=== PATIENT | female | born 1970 | race Caucasian/White ===

== ENCOUNTER 2021-12-06 09:30 | Emergency (ER) | payer SELFPAY ==
[2021-12-06 09:42] VITALS: BP 172/97; PULSE 100; RESP 16; TEMP 36.8; O2SAT 99; BMI 34.6
[2021-12-06 09:57] LABS: Glucose Point of Care 387 mg/dL (70-110)
--- NOTE | 2021-12-06 10:59 | W.ED.GENADLT ---
HPI - General Adult General: Chief complaint: General Medical Stated complaint: Sugar is really high Time Seen by Provider: 12/06/21 09:32 History of Present Illness: Patient is a 51-year-old female with history of obesity presenting to the emergency room for concerns of elevated glucose. Patient tells me that for the last few days she has had increased urination and increased thirst. Yesterday, patient was told by family member to check her glucose. Patient was noted her glucose to be 548. Patient reports that she was anxious and was in shock and had a little bit of chest pain at that time. Since then, patient repeat her glucose was noted that it was 390 yesterday night and continues to be persistently elevated today. Patient came to the emergency room for evaluation of elevated glucose. Denies nauesea/vomiting, fever/chill, chest pain, shortness of breath, abdominal pain, dysuria/hematuria/polyuria, diarrhea/melena/hematochezia. Shortly yesterday after she found out she had elevated glucose, patient had a little bit of chest pressure. Patient thinks that it may be related to her anxiety. Patient's chest the chest pressure only lasted for few minutes at a time. Denies any squeezing sensation, pleuritic chest pain or chest pain with radiation to the back. Onset: unknown Duration:ongoing Location:home Severity:moderate Associated symptoms: Reports chest pain; Deny dyspnea, nausea, rash, palpitations or vomiting Review of Systems Const: Denies: fever(s) or chills Eyes: Denies: change in vision ENMT: Denies: mouth pain Card: Reports: chest pain; Denies: palpitations Resp: Denies: dyspnea or non-productive cough GI: Denies: abdominal pain, nausea, vomiting or diarrhea : Reports: other (+polyuria); Denies: dysuria Musc: Denies: extremity pain Skin/Breast: Denies: rash or new lesions Neuro: Denies: weakness in extremities Psych: Reports: other (Normal mood) Stefan/Lymph: Denies: easy bruising PFSH ED PFSH: Medical History Obesity Social History Smoking and tobacco status: current every day smoker Alcohol intake: current Substance/Drug Use: never Physical Exam Const: COMMON NORMALS: alert HENMT: COMMON NORMALS: atraumatic HEAD & SCALP: atraumatic MOUTH: moist mucous membranes not abnormal Eye: COMMON NORMALS: EOMs intact bilaterally and conjunctivae normal CONJUNCTIVA: Yes conjunctivae normal Neck/C-Spine: COMMON NORMALS: full ROM and supple Resp: COMMON NORMALS: normal respiratory effort and clear to auscultation bilaterally AUSCULTATION: clear to auscultation bilaterally Cardio: COMMON NORMALS: regular rate RATE: regular rate GI: COMMON NORMALS: Soft to palpation and non-tender PALPATION: Yes Soft to palpation OTHER: No focal TTP. NO guarding rebound, guarding, rigidity. No CVA tenderness to percussion. Neg Montoya/Neg McBurney's point tenderness, no suprabupic tenderness to palpation. Extremity: COMMON NORMALS: full ROM Neuro: SENSORIUM/ORIENTATION: Yes alert MOTOR EXAM: No Abnormal motor strength present and Other motor observations present (no focal motor deficits) Psych: COMMON NORMALS: speech normal SPEECH: Yes normal speech MOOD & AFFECT: Yes euthymic mood Course Vital Signs: Vital signs: Vital Signs Temperature 98.2 F 12/06/21 09:42 Pulse Rate 80 12/06/21 13:35 Respiratory Rate 14 12/06/21 13:35 Blood Pressure 149/88 12/06/21 13:35 Pulse Oximetry 98 12/06/21 13:35 [facility] - General Adult Medical Decision Making 51-year-old female with history of bee sting presenting to the emergency room for concerns of elevated glucose. On physical exam, patient has no focal findings. Patient is glucose was 389. Lab did not show any signs of DKA. Patient received 2 L fluid with improvement glucose less than 300. After start patient on metformin. Patient tells me that she will follow-up with [facility] who is a nurse practitioner and will be started on insulin on Wednesday. Disposition: Discharge. Patient counseled regarding diagnostic impression, treatment plan. Patient given ED strict return precautions to return for continuation, worsening, or development of new symptoms. Instructed to f/u w/ PCP regarding symptoms today. Patient verbalized understanding. Lab Data : 12/06/21 11:20 12/06/21 11:20 Laboratory Results WBC 9.8 10^3/uL (4.0-10.0) 12/06/21 11:20 RBC 5.66 10^6/uL (4.1-5.3) H 12/06/21 11:20 Hgb 17.0 g/dL (11.5-15.3) H 12/06/21 11:20 Hct 49.1 % (37.0-47.0) H 12/06/21 11:20 MCV 86.7 fl (81-99) 12/06/21 11:20 MCH 30.0 pg (28.0-34.0) 12/06/21 11:20 MCHC 34.6 g/dL (30.0-36.0) 12/06/21 11:20 RDW 12.8 % (12.1-15.1) 12/06/21 11:20 Plt Count 247 10^3/cmm (130-400) 12/06/21 11:20 MPV 11.7 fL (7.4-10.4) H 12/06/21 11:20 Neut % (Auto) 67.2 % 12/06/21 11:20 Lymph % (Auto) 25.2 % 12/06/21 11:20 [place] % (Auto) 5.1 % 12/06/21 11:20 Eos % (Auto) 1.6 % 12/06/21 11:20 Baso % (Auto) 0.5 % 12/06/21 11:20 Neut # (Auto) 6.57 10^3/uL (1.8-7.7) 12/06/21 11:20 Lymph # (Auto) 2.5 10^3/uL (0.8-4.8) 12/06/21 11:20 [place] # (Auto) 0.5 10^3/uL (0.2-0.9) 12/06/21 11:20 Eos # (Auto) 0.2 10^3/uL (0.0-0.8) 12/06/21 11:20 Baso # (Auto) 0.1 10^3/uL (0.0-0.1) 12/06/21 11:20 Nucleated RBC % (auto) 0 % 12/06/21 11:20 Nucleated RBCs # 0.0 /100WBC 12/06/21 11:20 Sodium 135 mmol/L (136-145) L 12/06/21 11:20 Potassium 3.9 mmol/L (3.5-5.1) 12/06/21 11:20 Chloride 96 mmol/L (98-107) L 12/06/21 11:20 Carbon Dioxide 25 mmol/L (22-29) 12/06/21 11:20 Anion Gap 17.9 (5-19) 12/06/21 11:20 BUN 9 mg/dL (6-20) 12/06/21 11:20 Creatinine 0.8 mg/dL (0.5-0.9) 12/06/21 11:20 GFR Calculation 76.2 mL/min (90-130) L 12/06/21 11:20 Glucose 351 mg/dL (65-115) H 12/06/21 11:20 POC Glucose 272 mg/dL (70-110) H 12/06/21 13:18 Calculated Osmolality 293 mOsm/kg (285-295) 12/06/21 11:20 Calcium 9.5 mg/dL (8.5-10.5) 12/06/21 11:20 Troponin T Baseline 6 ng/L (0-10) 12/06/21 11:20 Serum Ketones Negative (Negative) 12/06/21 11:20 Discharge Plan Discharge Patient Disposition: Home Clinical Impression: Hyperglycemia Condition: Stable Prescriptions: New metformin 500 mg tablet 500 mg PO DAILY 30 Days Qty: 30 0RF Discharge Orders: Discharge ED (Routine); Ordered 12/06/21 Ordered By: Nasrin Lopez Discharge Diet: Advance as tolerated Discharge Activity: Increase activity as tolerated Patient Instructions: Diabetes and Diet, Diabetes and Exercise (ED) Activity Restrictions/Additional Instructions: Come back if you have any new or concerning issues. Please take your metformin daily. Please follow up with your primary care provider. Coding Level of Care Code ED Seamstress Fitter for Chg Fwd Exam Comprehensive
[2021-12-06] MEDS: sodium chloride 0.9% 1,000 ML 999 ML IV (11:21)
[2021-12-06 11:31] LABS: Basophils # 0.1 10^3/uL (0.0-0.1); Basophils % 0.5 %; Eosinophils # 0.2 10^3/uL (0.0-0.8); Eosinophils % 1.6 %; Hematocrit 49.1 % (37.0-47.0); Lymphocytes # 2.5 10^3/uL (0.8-4.8); Lymphocytes % 25.2 %; Mean Corpuscular HGB Conc 34.6 g/dL (30.0-36.0); Mean Corpuscular Volume 86.7 fl (81-99); Mean Platelet Volume 11.7 fL (7.4-10.4); Monocytes # 0.5 10^3/uL (0.2-0.9); Monocytes % 5.1 %; Neutrophils # 6.57 10^3/uL (1.8-7.7); Neutrophils % 67.2 %; Nucleated Red Blood Cells % 0 %; Platelet Count 247 10^3/cmm (130-400); Red Blood Count 5.66 10^6/uL (4.1-5.3); Red Cell Distribution Width 12.8 % (12.1-15.1); White Blood Count 9.8 10^3/uL (4.0-10.0)
[2021-12-06 11:39] LABS: Ketone (Acetest) Serum Negative (Negative)
--- NOTE | 2021-12-06 11:39 | ECG_ITS ---
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 Measurements Intervals [place] Rate: 87 P: 59 ID: [id number] QRS: 41 QRSD: 94 T: 29 QT: 355 QTc: 429 Interpretive Statements SINUS RHYTHM NONSPECIFIC T-WAVE ABNORMALITY No previous ECG available for comparison Electronically Signed On 12-07-2021 12:30:31 CDT by Bryant Enamorado M.D. [id number]
[2021-12-06 11:52] LABS: Blood Urea Nitrogen 9 mg/dL (6-20); Calcium 9.5 mg/dL (8.5-10.5); Carbon Dioxide 25 mmol/L (22-29); Chloride 96 mmol/L (98-107); Glomerular Filtration Rate 76.2 mL/min (90-130); Glucose 351 mg/dL (65-115); Osmolality Calculated 293 mOsm/kg (285-295); Sodium 135 mmol/L (136-145)
[2021-12-06 11:54] LABS: Anion Gap 17.9 (5-19); Potassium 3.9 mmol/L (3.5-5.1)
[2021-12-06 12:13] LABS: Troponin(5th) Baseline 6 ng/L (0-10)
[2021-12-06 13:22] LABS: Glucose Point of Care 272 mg/dL (70-110)
[2021-12-06 13:33] VITALS: BP 149/88; PULSE 80; RESP 14; O2SAT 98
[2021-12-06 13:35] VITALS: BP 149/88; PULSE 80; RESP 14; O2SAT 98
== END 2021-12-06 13:37 | disposition home or self-care (01) ==
PROVIDERS: Emergency Medicine; Emergency Provider Emergency Medicine
DX: R73.9 Hyperglycemia, unspecified (principal); F17.210 Nicotine dependence, cigarettes, uncomplicated
CPT/HCPCS: 36416; 80048; 82009; 82962; 84484; 85025; 93005; 96360; 99284; J7030

== ENCOUNTER → 2022-03-12 09:48 | Outpatient (BNVA) | payer SELFPAY | PROVIDERS: Visit Provider Internal Medicine | DX: E11.9 Type 2 diabetes mellitus without complications (principal) | CPT/HCPCS: 80053; 80061; 83036 ==

== ENCOUNTER → 2022-03-18 09:45 | Outpatient (BNVA) | payer SELFPAY | PROVIDERS: PCP Nurse Practitioner Family; Visit Provider Nurse Practitioner Family | DX: N93.9 Abnormal uterine and vaginal bleeding, unspecified (principal) | CPT/HCPCS: 82670; 83001; 84144; 84439; 84443 ==

== ENCOUNTER → 2022-03-25 13:04 | Outpatient (BNVA) | payer SELFPAY | PROVIDERS: PCP Nurse Practitioner Family; Visit Provider Nurse Practitioner Family | DX: N93.9 Abnormal uterine and vaginal bleeding, unspecified (principal); Z12.4 Encounter for screening for malignant neoplasm of cervix | CPT/HCPCS: 87624 ==

== ENCOUNTER 2022-04-06 09:18 | Outpatient (CLI) | payer SELFPAY ==
--- NOTE | 2022-04-06 09:48 | MM_ITS ---
WS: [id number] DIAGNOSTIC BILATERAL DIGITAL BREAST TOMOSYNTHESIS MAMMOGRAPHY WITH CAD RIGHT breast ultrasound, limited HISTORY: lump and pain COMPARISON: 03/23/2016 TECHNIQUE: Bilateral craniocaudad, mediolateral oblique, and mediolateral views are submitted with to mosynthesis and SM. Spot compression RIGHT CC. Computer aided detection utilized. Breast composition: There are scattered areas of fibroglandular density. Palpable marker is placed al kassidy the medial RIGHT breast. There is no underlying mass identified. There is a small nodule with melanie tral calcification in the RIGHT breast at 8:00. This is a slightly lobulated mass. Negative LEFT [address] RIGHT breast ultrasound, limited. Ultrasound directed to the RIGHT breast at 3:00 demonstrates no abnormality. This is the palpable loc ation. At 8:00, 3 cm from the nipple is a small cluster of cysts or a cyst with septations. No increa sed vascularity. The small cluster measures 8 x 9 x 7 mm. MM/[place] [id number] IMPRESSION: BI-RADS: 3-Probably Benign FOLLOW UP: 6 Month Follow-up 1. Ultrasound RIGHT breast follow-up in 6 months at 8:00 to reevaluate the sma ll cluster of cysts or cystic mass with septation. 2. No abnormality is noted in the RIGHT breast at 3:00 at the palpable mass si te.
--- NOTE | 2022-04-06 10:13 | US_ITS ---
WS: [id number] DIAGNOSTIC BILATERAL DIGITAL BREAST TOMOSYNTHESIS MAMMOGRAPHY WITH CAD RIGHT breast ultrasound, limited HISTORY: lump and pain COMPARISON: 03/23/2016 TECHNIQUE: Bilateral craniocaudad, mediolateral oblique, and mediolateral views are submitted with to mosynthesis and SM. Spot compression RIGHT CC. Computer aided detection utilized. Breast composition: There are scattered areas of fibroglandular density. Palpable marker is placed al kassidy the medial RIGHT breast. There is no underlying mass identified. There is a small nodule with melanie tral calcification in the RIGHT breast at 8:00. This is a slightly lobulated mass. Negative LEFT [address]. RIGHT breast ultrasound, limited. Ultrasound directed to the RIGHT breast at 3:00 demonstrates no abnormality. This is the palpable loc ation. At 8:00, 3 cm from the nipple is a small cluster of cysts or a cyst with septations. No increa sed vascularity. The small cluster measures 8 x 9 x 7 mm. US/US breast RT limited* [id number] IMPRESSION: BI-RADS: 3-Probably Benign FOLLOW UP: 6 Month Follow-up 1. Ultrasound RIGHT breast follow-up in 6 months at 8:00 to reevaluate the sma ll cluster of cysts or cystic mass with septation. 2. No abnormality is noted in the RIGHT breast at 3:00 at the palpable mass si te.
== END 2022-04-06 09:19 | disposition home or self-care (01) ==
LOC: RAD 09:27
PROVIDERS: PCP Nurse Practitioner Family; Visit Provider Nurse Practitioner Family
DX: N64.4 Mastodynia (principal); N63.0 Unspecified lump in unspecified breast; N60.01 Solitary cyst of right breast; N63.14 Unspecified lump in the right breast, lower inner quadrant
CPT/HCPCS: 76642; 77062

== ENCOUNTER → 2022-05-22 13:17 | Outpatient (BNVA) | payer SELFPAY | PROVIDERS: PCP Nurse Practitioner Family; Visit Provider Obstetrics & Gynecology | DX: N93.9 Abnormal uterine and vaginal bleeding, unspecified (principal) | CPT/HCPCS: 76830 ==

== ENCOUNTER → 2022-05-25 13:17 | Outpatient (BNVA) | payer SELFPAY | PROVIDERS: PCP Nurse Practitioner Family; Visit Provider Obstetrics & Gynecology | DX: R87.619 Unspecified abnormal cytological findings in specimens from cervix uteri (principal) | CPT/HCPCS: 88305 ==

== ENCOUNTER → 2022-06-11 10:05 | Outpatient (BNVA) | payer SELFPAY | PROVIDERS: PCP Nurse Practitioner Family; Visit Provider Internal Medicine | DX: E78.2 Mixed hyperlipidemia (principal) | CPT/HCPCS: 80053; 80061; 82043; 83036 ==

== ENCOUNTER → 2022-09-11 11:48 | Outpatient (BNVA) | payer SELFPAY | PROVIDERS: PCP Nurse Practitioner Family; Visit Provider Internal Medicine | DX: E78.2 Mixed hyperlipidemia (principal) | CPT/HCPCS: 80053; 80061; 82043; 83036 ==

== ENCOUNTER 2022-10-07 07:34 | Outpatient (CLI) | payer SELFPAY ==
--- NOTE | 2022-10-07 07:48 | US_ITS ---
WS: [id number] ULTRASOUND RIGHT BREAST HISTORY: 6 month follow-up cystic mass RIGHT breast. COMPARISON: 04/06/2022 TECHNIQUE: 2-D and Doppler. There is a small cluster of cysts or cyst with septation at 8:00, 3 cm from the nipple. Very similar in appearance as compared to the prior examination. The cystic cluster measures 8 x 6 x 9 mm. Very si milar in size also to the prior study. No areas of suspicious shadowing or mass. US/US breast RT limited* [id number] IMPRESSION: BI-RADS: 3-Probably Benign FOLLOW-UP: 6 Month Follow-up Patient to return for annual mammogram March 2023. Ultrasound RIGHT breast lo calized to 8:00 should be performed also. Long-term stability recommended of t he cystic cluster. Very benign in appearance.
== END 2022-10-07 07:35 | disposition home or self-care (01) ==
LOC: RAD 07:36
PROVIDERS: PCP Nurse Practitioner Family; Visit Provider Nurse Practitioner Family
DX: R92.8 Other abnormal and inconclusive findings on diagnostic imaging of breast (principal); N60.01 Solitary cyst of right breast
CPT/HCPCS: 76642

== ENCOUNTER → 2022-12-18 10:58 | Outpatient (BNVA) | payer SELFPAY | PROVIDERS: PCP Nurse Practitioner Family; Visit Provider Internal Medicine | DX: E78.2 Mixed hyperlipidemia (principal) | CPT/HCPCS: 80053; 80061; 82043; 82306; 83036 ==

== ENCOUNTER 2023-05-11 14:30 | Outpatient (CLI) | payer SELFPAY ==
--- NOTE | 2023-05-11 14:36 | MM_ITS ---
WS: [id number] DIAGNOSTIC BILATERAL DIGITAL BREAST TOMOSYNTHESIS MAMMOGRAPHY WITH CAD RIGHT breast ultrasound, limited HISTORY: FIBROCYSTIC BREAST DZ COMPARISON: 10/07/2022, 04/06/2022, 03/23/2016 TECHNIQUE: Bilateral craniocaudad, mediolateral oblique, and mediolateral views are submitted with to mosynthesis and SM. Computer aided detection utilized. Breast composition: There are scattered areas of fibroglandular density. Stable asymmetries and nodul es and calcifications within each breast since 2016. No areas of architectural distortion. Ultrasound will be obtained of the RIGHT breast at 8:00 as requested on the prior exam. RIGHT breast ultrasound, limited. Complex cystic collection measures 1.0 x 0.8 x 1.0 cm 8:00 RIGHT breast 3 cm from the nipple. This is a small cluster of cysts which has not changed in size. IMPRESSION: MM/[place] [id number] BI-RADS: 2-Benign FOLLOW UP: 1 Year Follow-up
== END 2023-05-11 14:31 | disposition home or self-care (01) ==
LOC: RAD 14:30
PROVIDERS: PCP Nurse Practitioner Family; Visit Provider Nurse Practitioner Family
DX: N60.12 Diffuse cystic mastopathy of left breast (principal); N60.11 Diffuse cystic mastopathy of right breast
CPT/HCPCS: 76642; 77062; G0279

== ENCOUNTER → 2023-06-23 11:10 | Outpatient (BNVA) | payer OTHER, SELFPAY | PROVIDERS: PCP Nurse Practitioner Family; Visit Provider Nurse Practitioner Women's Health | DX: N93.9 Abnormal uterine and vaginal bleeding, unspecified (principal); Z01.419 Encounter for gynecological examination (general) (routine) without abnormal findings; N95.1 Menopausal and female climacteric states | CPT/HCPCS: 82465; 82670; 83001; 83002; 83036; 83718; 83721; 84439; 84443; 84481; 87624 ==

== ENCOUNTER 2024-04-27 09:20 | Outpatient (CLI) | payer OTHER, SELFPAY ==
--- NOTE | 2024-04-27 09:29 | XRR_ITS ---
PROCEDURE INFORMATION: Exam: XR Lumbosacral Spine Exam date and time: 04/27/2024 9:38 AM Age: 54 years old Clinical indication: Low back pain; Patient HX: -- numbness around lateral left knee/hip, lower back pain that radiates down leg x 1 yr; Additional info: Lumbar pain TECHNIQUE: Imaging protocol: Radiologic exam of the lumbosacral spine. Views: 2 or 3 views. COMPARISON: No relevant prior studies available. FINDINGS: Bones/joints: There are 5 ory-gky-xoffrcy lumbar vertebral bodies. There is a slight scoliotic curvature convex left. No subluxations are identified. No compression fractures are noted. Disc spaces are relatively well preserved. There are small anterior osteophytes at L2, L3, and L4. There are degenerative changes involving the lower lumbar facets. SI joints are normal. Soft tissues: Unremarkable. Organs: Calcifications within the right midabdomen could be related to the gallbladder or right kidney. XR/XR lumbar spine 2-3V* [id number] IMPRESSION: 1. Slight scoliotic curvature convex left. 2. Mild spondylosis. 3. Calcifications on the right likely related to the gallbladder or possibly the right kidney.
== END 2024-04-27 09:21 | disposition home or self-care (01) ==
PROVIDERS: PCP Nurse Practitioner Family; Visit Provider Nurse Practitioner Family
DX: M51.360 Other intervertebral disc degeneration, lumbar region with discogenic back pain only (principal); M25.78 Osteophyte, vertebrae
CPT/HCPCS: 72100

== ENCOUNTER → 2024-06-28 11:27 | Outpatient (BNVA) | payer OTHER, SELFPAY | PROVIDERS: PCP Nurse Practitioner Family; Visit Provider Nurse Practitioner Women's Health | DX: Z01.419 Encounter for gynecological examination (general) (routine) without abnormal findings | CPT/HCPCS: 80053; 82306; 82465; 83036; 83718; 83721; 84443; 85025 ==

== ENCOUNTER 2024-07-07 10:55 | Outpatient (CLI) | payer OTHER, SELFPAY ==
--- NOTE | 2024-07-07 11:20 | MM_ITS ---
WS: [id number] BILATERAL SCREENING DIGITAL TOMOSYNTHESIS MAMMOGRAM WITH CAD HISTORY: Z12.31 screen COMPARISON: 05/11/2023, 04/06/2022 Bilateral CC and MLO views with tomosynthesis and synthetic mammography submitted. Computer aided det ection analyzed. Breast composition: There are scattered areas of fibroglandular density. No suspicious masses, microc alcifications or architectural distortion. Stable 6 mm mass with adjacent calcification RIGHT breast 9:00. Mass at a middle depth. Mass has been present since 04/06/2022. There are additional bilateral calcifications within each breast. No suspicious grouping of calcifications. MM/MM scr BI tomosynthesis [id number] IMPRESSION: BI-RADS: 2 - Benign. FOLLOW UP: 1 Year Follow-up
== END 2024-07-07 10:56 | disposition home or self-care (01) ==
LOC: RAD 10:57
PROVIDERS: PCP Nurse Practitioner Family; Visit Provider Nurse Practitioner Women's Health
DX: Z12.31 Encounter for screening mammogram for malignant neoplasm of breast (principal); R92.323 Mammographic fibroglandular density, bilateral breasts; N63.15 Unspecified lump in the right breast, overlapping quadrants; R92.1 Mammographic calcification found on diagnostic imaging of breast
CPT/HCPCS: 77063; 77067

== ENCOUNTER 2024-08-08 07:38 | Day surgery (SDC) | payer OTHER, SELFPAY ==
[2024-08-08] VITALS (9 sets, daily range): BP systolic 105–167; BP diastolic 72–94; PULSE 82–114; RESP 16–17; TEMP 36.1–36.2; O2SAT 90–98; BMI 35.5
--- NOTE | 2024-08-08 08:07 | W.PM.OPSUD ---
Surgery/Procedure H&P Update DATE OF PROCEDURE: August 08, 2024 DATE H&P PERFORMED: 07/27/24 H&P UPDATE INFORMATION: I have reviewed H&P completed within last 30 days, I have examined patient prior to procedure and No changes to prior documentation PLANNED PROCEDURE: Operation Date: 08/08/24 08:20 Proposed Procedures p Excision of Breast Mass Breast Lumpectomy 46316, N63.10(Right) - Rafael Loja DO
[2024-08-08] MEDS: sodium chloride 0.9% 1,000 ML 30 ML IV (08:16)
[2024-08-08] MEDS: vancomycin 1,500 MG/300 ML PIGGYBACK 200 MG IV (08:26)
--- NOTE | 2024-08-08 08:44 | ANES.PREANE2 ---
Pre-Anesthetic Assessment Height/Weight: Height 1.68 m Weight 99.79 kg Temp Pulse Resp BP Pulse Ox O2 Del Method 97.0 F L 114 H 17 167/94 98 Room Air 08/08/24 08:00 08/08/24 08:00 08/08/24 08:00 08/08/24 08:00 08/08/24 08:00 08/08/24 08:01 Preop Diagnosis: breast lesion Operation Date: 08/08/24 08:20 Proposed Procedures p Excision of Breast Mass Breast Lumpectomy 15777, N63.10(Right) - Rafael Loja DO Familial anesthetic complications: none Was Beta Cindy taken within 24 hours: N/A Was Clonidine taken within 24 hours: N/A Last intake: Intake Last Liquid Date 08/07/24 Last Liquid Time 22:30 Last Solid Date 08/07/24 Last Solid Time 20:30 Social No alcohol and No tobacco Exam alert, oriented x 3, clear to auscultation bilaterally and regular rate & rhythm Airway Submandibular: within normal limits Cervical ROM: within normal limits Mallampati: Class II Dentition: full History/ROS No significant history except as noted Pulmonary None reported CV/HEM None reported None reported Hepatic None reported GI None reported Metabolic Diabetes Mellitus, Hyperlipidemia and Morbid Obesity [facility] None reported Neuropsych None reported Anesthetic Plan ASA status: 3 Anesthesia: General Risk of > 500 ml blood loss (7ml/kg in children): No Medications/Allergies Home Medications ?Medication ?Instructions ?Recorded ?Confirmed ?Last Taken ?Type krill oil 500 mg capsule 500 mg PO DAILY 03/18/22 08/08/24 08/07/24 History loratadine 10 mg tablet (Claritin) 10 mg PO DAILY 03/18/22 08/08/24 08/07/24 History xrdzpflj-kvw-Lz-FA 1 mg 1 tab PO DAILY 03/18/22 08/08/24 Unknown History tablet metformin 500 mg tablet,extended 1,000 mg PO DAILY 04/30/22 08/08/24 08/07/24 History release 24 hr estradiol 0.01% (0.1 mg/gram) 1 g vaginal DAILY #42.5 grams 06/28/24 08/07/24 08/02/24 Rx vaginal cream estradiol 0.5 mg tablet 0.5 mg PO DAILY #90 tabs 0108/07/24 08/07/24 Rx progesterone micronized 100 mg 100 mg PO BEDTIME #90 caps 06/28/24 08/08/24 08/07/24 Rx capsule ezetimibe 10 mg tablet 10 mg PO DAILY #90 tabs 08/03/24 08/07/24 08/07/24 Rx empagliflozin 25 mg tablet 25 mg PO DAILY 08/07/24 08/07/24 08/07/24 History (Jardiance) Allergies Allergy/AdvReac Type Severity Reaction Status Date / Time Penicillins Allergy ALGY-Anaphy Verified 08/08/24 07:54 laxis Zwouvzu-XRE-SuR Reductase Allergy ADR-Muscle Verified 08/08/24 07:54 Inhibitor Pain Current Medications Generic Name Dose Route Start Last Admin Trade Name Phaniq PRN Reason Stop Dose Admin Sodium Chloride 1,000 mls @ 30 mls/hr 08/08/24 08:00 08/08/24 08:16 Sodium Chloride 0.9% IV 08/09/24 07:59 30 mls/hr .Q24H CALLUM Administration Vancomycin HCl 1,500 mg in 300 mls @ 200 mls/hr 08/08/24 08:20 08/08/24 08:26 Vancocin IV 08/08/24 09:49 200 mls/hr [employer] Administration Protocol [facility] Anesthesia Medical History (Updated 08/08/24 @ 08:05 by Rafael Loja DO) Family history of breast cancer No pertinent past medical history neghx: htn,thyroid,dvt/pe PCP: Melina New Diabetes type 2, uncontrolled Obesity Surgical History H/O dilation and curettage Family History Father Diabetes Hypertension Heart disease Hypercholesteremia Mother Breast cancer dx age 50 Diabetes Heart disease Family/Other Breast cancer Maternal Aunt--dx age 63 Denies family history of Colon cancer Ovarian cancer Uterine cancer Thyroid disease Stroke Social History Smoking and tobacco/nicotine status: never used tobacco/nicotine Substance/Drug Use: never Data Anesthesia Cardiac Studies: No Data to Display
[2024-08-08] MEDS: lidocaine-epi 2% PF 1:200,000 20 mL SDV XX (09:22)
--- NOTE | 2024-08-08 09:44 | PM.OP ---
Operative Report Date of procedure: August 08, 2024 Pre-op diagnosis: Right breast calcifications Family history of breast cancer Post-op diagnosis: same Procedure done: Right breast lumpectomy Implants: Dianna Specimens removed/disposition: Right breast lumpectomy specimen-long lateral, short superior and double anterior Surgeon: Rafael Loja DO Anesthesia: General and Local Estimated blood loss (mL): 75 Complications: None apparent Brief History: This very pleasant 54-year-old female with an extensive family history of breast cancer who presented my office with concerns about a recent mammogram showing calcifications at the 9 o'clock position of her right breast. These are somewhat painful and she had significant anxiety about following these over her lifetime due to her family history of breast cancer. She desired lumpectomy. Right breast lymphectomy was indicated. The risks and benefits were explained and documented. Procedure: The patient was brought back into the operating room. She was placed on the OR table in the supine position. The right breast and axilla were inspected prepped and draped in usual sterile fashion. A timeout was performed. All present were in agreement. A 6 cm semicircular incision was performed on the bottom half of the areola after localization with 2% lidocaine with epinephrine. Electrocautery was used to carve out a lumpectomy specimen. The patient's area of concern is at the 9 o'clock position of the right breast, also somewhat retroareolar, where calcifications were seen on mammogram. Dissection was carried down to the pectoralis major muscle. Specimen was taken out en bloc. Short stitch herrmann superior. Long stitch herrmann lateral. Double stitch herrmann anterior. Hemostasis was achieved with electrocautery and Dianna. Specimen was sent to pathology on formalin. The dermis was approximated with 3-0 Vicryl. The skin was closed with 4-0 Vicryl in a subcuticular and running fashion. Dermabond was applied. Patient tolerated the procedure well.
[2024-08-08] MEDS: HYDROcodone-acetaminophen 7.5-325 mg Tablet 1 TAB PO (10:58)
--- NOTE | 2024-08-08 11:05 | ANE.PACU2 ---
Inpatient post-anesthesia follow up: Airway intact: Yes Vital signs: Temperature 97.1 F Pulse Rate 96 Respiratory Rate 17 Blood Pressure 121/79 Pulse Oximetry 93 Oxygen Delivery Me thod Room Air Oxygen Flow Rate 6 Fraction of Inspir ed Oxygen Hydration adequate: Yes Nausea and vomiting: No Pain level: 1 Mental status: Baseline
== END 2024-08-08 11:06 | disposition home or self-care (01) ==
PROVIDERS: PCP Nurse Practitioner Family; Visit Provider Surgery
PROC: (CPT 19120; principal; 2024-08-08 08:10)
DX: N60.31 Fibrosclerosis of right breast (principal); N62 Hypertrophy of breast; N60.41 Mammary duct ectasia of right breast; N60.81 Other benign mammary dysplasias of right breast; N60.21 Fibroadenosis of right breast; Z80.3 Family history of malignant neoplasm of breast; Z79.899 Other long term (current) drug therapy; E11.9 Type 2 diabetes mellitus without complications; E66.9 Obesity, unspecified; Z68.35 Body mass index [BMI] 35.0-35.9, adult
CPT/HCPCS: 19301; 88305; J1100; J2250; J2405; J2704; J3010; J3370; J7030

== ENCOUNTER → 2025-03-14 12:19 | Outpatient (BNVA) | payer OTHER, SELFPAY | PROVIDERS: PCP Nurse Practitioner Family; Visit Provider Internal Medicine | DX: E11.65 Type 2 diabetes mellitus with hyperglycemia (principal) | CPT/HCPCS: 36415; 80053; 80061; 82044; 83036 ==